=== PATIENT | male | born 1995 | race African-American/Black ===

== ENCOUNTER 2016-08-06 16:27 | Emergency (ER) | payer MEDICAID, OTHER ==
[~2016-08-06] VITALS: Ht 180.3 cm; Wt 72.6 kg
[~2016-08-06 16:27] MED LIST: NKM
[2016-08-06] MEDS ORDERED: COLACE100 MG ORAL (18:03)
[2016-08-06] MEDS ORDERED: MIRALAX119 GM PO (18:03)
[2016-08-06] MEDS ORDERED: METAMUCIL660 GM PO (18:03)
[2016-08-06 18:15] VITALS: BP 115/79
[2016-08-06 18:16] VITALS: BP 115/79
--- NOTE | 2016-08-06 22:04 | Emergency Room Report ---
History of Present Illness General Chief Complaint: General Complaint Source: Family Member Present Illness HPI The patient is a 20-year-old male with a history of schizophrenia brought in by father for constipation. The father states that the patient is not taking any medications and has not seen a psychiatrist recently. The father states he has to constantly remind the patient to have a bowel movement or else he forgets. Last bowel movement was 3 days prior and stated to be hard and painful. He has not tried anything for constipation besides prune juice. Pain of the abdomen is described as a 5/10 dull ache diffusely. Pain worse with defecation. He denies any blood in the stools. He denies any other symptoms including nausea, vomiting, fever, chills, dysuria, diarrhea, melena, hematochezia Allergies: Coded Allergies: No Known Allergies (Unverified , 03/06/13) Patient History Past Medical History: see triage record Pertinent Family History: none Reviewed Nursing Documentation: PMH: Agreed, PSxH: Agreed Nursing Documentation-PMH Past Medical History: No History, Except For Hx Asthma: Yes - childhood History Of Psychiatric Problem: Yes - schizophrenia Review of Systems All Other Systems: negative except mentioned in HPI Physical Exam Vital Signs Date Time Temp Pulse Resp B/P Pulse Ox O2 Delivery O2 Flow Rate FiO2 08/06/16 16:42 98.8 96 12 115/79 96 08/06/16 18:15 Room Air Sp02 EP Interpretation: reviewed, normal General Appearance: no apparent distress, alert, GCS 15, non-toxic Head: normocephalic, atraumatic Eyes: bilateral eye PERRL, bilateral eye normal inspection ENT: hearing grossly normal, normal pharynx, no angioedema, normal voice Neck: full range of motion, supple/symm/no masses Respiratory: chest non-tender, lungs clear, normal breath sounds, speaking full sentences Gastrointestinal: normal bowel sounds, non tender, soft, no mass, non-distended , no guarding, no rebound Genitourinary: normal inspection, no CVA tenderness Musculoskeletal: back normal, gait/station normal, normal range of motion, non- tender Neurologic: alert, oriented x3, responsive, motor strength/tone normal, sensory intact, speech normal Psychiatric: judgement/insight normal, memory normal, no suicidal/homicidal ideation Skin: normal color, no rash, warm/dry, well hydrated Lymphatic: no adenopathy Medical Decision Making PA Attestation Dr. Andrade is my supervising physician. Patient management was discussed with my supervising physician Diagnostic Impression: Primary Impression: Constipation Qualified Codes: K59.00 - Constipation, unspecified ER Course The patient is a 20-year-old male with a history of schizophrenia brought in by father for constipation Differential diagnoses considered but not limited to: Constipation, gastroenteritis, hemorrhoids, ulcerative colitis, Crohn disease PE: Vitals WNL. NAD. Abdomen: Normal appearance. Non distended. No ecchymosis. Normal BS. Non TTP. No McBurney point tenderness. No guarding. No CVA tenderness Abdominal x-ray has findings consistent with constipation The patient will be discharged home with a prescription for Colace, MiraLAX, and fiber supplements. He will take in plenty of fluids. The father will help remind the patient to have bowel movements in the morning and evening.. He is informed he needs to follow up with psychiatrist. ER precautions are given Other X-Ray Diagnostic Results Other X-Ray Diagnostic Results : X-Ray Ordered: Abd Date: August 06, 2016 EP Interpretation: Yes Findings: no fractures, no dislocation, no soft tissue swelling, other - full of feces Number of Views: 2 PA Scribe Text I am acting as scribe for my supervising physician. My supervising physician's interpretation of the Abdominal x-rays are there are findings consistent with constipation Last Vital Signs Date Time Temp Pulse Resp B/P Pulse Ox O2 Delivery O2 Flow Rate FiO2 08/06/16 18:16 98.8 76 14 115/79 98 Room Air Status: improved Disposition: HOME, SELF-CARE Condition: Improved Scripts Psyllium Husk (Metamucil) 660 Gm Powder 1 TBS PO BID, #660 GM Prov: TERZIAN,TAINA P.A. 08/06/16 Docusate Sodium* (COLACE*) 100 Mg Capsule 100 MG ORAL TWICE A DAY, #14 CAP Prov: TERZIAN,TAINA P.A. 08/06/16 Polyethylene Glycol 3350 (MIRALAX) 119 Gm Powder 17 GM PO DAILY Y for Constipation, #119 GM Prov: TERZIAN,TAINA P.A. 08/06/16 Referrals: [facility],REFERRING (PCP) Patient Instructions: Constipation, Adult Additional Instructions: I discussed my findings with the patient. All questions and concerns have been answered. Treatment and medication compliance have been addressed. I advised the patient that they need to follow up with PMD in 3-5 days. Return to ED if symptoms worsen, new symptoms arise, or if needed for any reason. Patient verbalized understanding of discharge instructions. TAINA BERNABE August 06, 2016 22:04
--- NOTE | 2016-08-07 12:23 | Diagnostic Imaging Report ---
Indication: Abdominal pain Comparison: None Single view of the abdomen obtained Findings: Bowel gas pattern is nonspecific. No mass, ectopic calcifications, or abnormal gas collections are identified. The bones are unremarkable. Impression: No acute findings
== END 2016-08-06 18:15 | disposition home or self-care (01) ==
LOC: EMR 18:15
DX: K59.00 Constipation, unspecified (principal); F20.9 Schizophrenia, unspecified; J45.909 Unspecified asthma, uncomplicated
CPT/HCPCS: 74020; 99284